=== PATIENT | female | born 1965 | race African-American/Black ===

== ENCOUNTER 2017-09-26 19:36 | Emergency (ER) | payer MEDICAID ==
[~2017-09-26] VITALS: Ht 162.6 cm; Wt 108.4 kg
[~2017-09-26 19:36] MED LIST: ASPIR 8181 MG ORAL; BENAZEPRIL HCL10 MG ORAL; BENAZEPRIL HCL20 MG ORAL; CALCIUM600 M1 PO; CIPRO500 MG/51 PO; CVS CALCIUM 601 EAC3 PO; FERROUS SULFAT325 MG ORAL; FLUOXETINE HCL20 M2 ORAL; FLUOXETINE HCL20 MG ORAL; FLUTICASONE PRO16 G1 NASAL; FUROSEMIDE40 MG ORAL; HYDROCHLOROTHIA50 MG ORAL; IBUPROFEN600 MG ORAL; IBUPROFEN800 MG ORAL; IRON325 M2 PO; KEFLEX500 MG ORAL; LEVAQUIN250 M1 ORAL; LEVAQUIN500 MG ORAL; LORATADINE10 M2 PO; MELOXICAM15 MG PO; METRONIDAZOLE500 MG ORAL; NORCO 10-325 T1 EACH ORAL; NORCO 5-325 TA1 EACH ORAL; NORCO 7.5/3251 EA ORAL; OMEPRAZOLE40 M1 ORAL; PHENERGAN6.25 MG/5 ORAL; PROMETHAZINE-C118 M1 ORAL; RANITIDINE HCL150 M2 PO; ZANTAC150 MG ORAL; ZITHROMAX250 MG ORAL; [UNRECOGNIZED DRUG - OTHER]
[2017-09-26 20:14] VITALS: BP 122/82
[2017-09-26 20:15] VITALS: BP 122/82
--- NOTE | 2017-09-26 20:50 | Emergency Room Report ---
History of Present Illness General Chief Complaint: Pain Source: Patient Present Illness HPI 51-year-old female history of hypertension and arthritis, presenting with 2 days of runny nose, myalgias, dry cough. States that her son has been sick after getting something from school. Denies any chest pain shortness of breath no nausea no vomiting she has otherwise been eating and drinking well no other complaints Allergies: Coded Allergies: No Known Allergies (Unverified , 10/30/13) Patient History Past Medical History: see triage record Past Surgical History: none Pertinent Family History: none Reviewed Nursing Documentation: PMH: Agreed, PSxH: Agreed Nursing Documentation-PMH Hx Cardiac Problems: No - GLAUCOMA BOTH EYES,BREAST REDUCTION Hx Hypertension: Yes Hx Cancer: No Hx Gastrointestinal Problems: Yes - Anemia, CHOLECYSTECTOMY Hx Neurological Problems: No Review of Systems All Other Systems: negative except mentioned in HPI Physical Exam Vital Signs Date Time Temp Pulse Resp B/P (MAP) Pulse Ox O2 Delivery O2 Flow Rate FiO2 09/26/17 19:42 98.2 72 18 111/74 99 Room Air Sp02 EP Interpretation: reviewed, normal General Appearance: normal inspection, well appearing, no apparent distress, alert, GCS 15, non-toxic Head: normocephalic, atraumatic Eyes: bilateral eye normal inspection, bilateral eye PERRL, bilateral eye EOMI ENT: normal ENT inspection, normal pharynx, normal voice, moist mucus membranes Neck: normal inspection, full range of motion, supple Respiratory: normal inspection, lungs clear, normal breath sounds, no respiratory distress, no retraction, no wheezing, speaking full sentences, chest symmetrical Cardiovascular #1: normal inspection, regular rate, rhythm, no edema, normal capillary refill Cardiovascular #2: 2+ radial (R), 2+ radial (L) Gastrointestinal: normal inspection, non tender, soft, non-distended, no guarding Musculoskeletal: normal inspection, back normal, normal range of motion, non- tender Neurologic: normal inspection, alert, oriented x3, responsive, motor strength/ tone normal, sensory intact, normal gait, speech normal Psychiatric: normal inspection, judgement/insight normal, memory normal Skin: normal inspection, normal color, no rash, warm/dry, well hydrated, normal turgor Medical Decision Making Diagnostic Impression: Primary Impression: Viral URI ER Course 51-year-old female with 2 days runny nose cough myalgias DDX: Viral URI Lung sounds clear she is not hypoxic or having any shortness of breath, no concern with pneumonia in this patient Plan: None in the emergency room ER course: Patient has remained stable during ED stay. Disposition: Patient is to be discharged to home. Patient is instructed to follow up with their primary care doctor within 5 days. Strict return precautions discussed with patient such as fever, chills, shortness of breath chest pain, nausea, vomiting, which may indicate severe illness. Patient verbalizes understanding and agrees with plan. Please note that this Emergency Department Report was dictated using MVP Vaultmarine fuel dock attendant technology software, occasionally this can lead to erroneous entry secondary to interpretation by the dictation equipment Last Vital Signs Date Time Temp Pulse Resp B/P (MAP) Pulse Ox O2 Delivery O2 Flow Rate FiO2 09/26/17 20:15 98.2 77 18 122/82 100 Room Air Disposition: HOME, SELF-CARE Condition: Stable Referrals: NON PHYSICIAN (PCP) Patient Instructions: Viral Respiratory Infection, [id number] Additional Instructions: PLEASE FOLLOW UP WITH YOUR DOCTOR IN 1 WEEK Debra Lima M.D. Sep 26, 2017 20:50
== END 2017-09-26 20:16 | disposition home or self-care (01) ==
LOC: EMR 20:14
DX: J06.9 Acute upper respiratory infection, unspecified (principal); I10 Essential (primary) hypertension; Z90.49 Acquired absence of other specified parts of digestive tract; M19.90 Unspecified osteoarthritis, unspecified site
CPT/HCPCS: 99283

== ENCOUNTER 2017-11-10 20:13 | Emergency (ER) | payer MEDICAID ==
[~2017-11-10] VITALS: Ht 162.6 cm; Wt 120.2 kg
[2017-11-10] MEDS ORDERED: ROBAXIN-750750 MG PO (21:02)
[2017-11-10] MEDS ORDERED: IBUPROFEN600 MG ORAL (21:02)
[2017-11-10 21:05] VITALS: BP 104/67
--- NOTE | 2017-11-12 08:45 | Emergency Room Report ---
History of Present Illness General Chief Complaint: Pain Source: Patient Present Illness HPI Patient has with complaints of left shoulder and left knee pain Reports that she has been diagnosed with meniscal tear on the left knee Patient is supposed to be getting set up for surgery However she feels that her left shoulder has increased in pain in triage reported bilateral shoulder pain However on further discussion reports that her left side as the main problem Denies any fall or trauma patient also previously had felt a pulling sensation in the left upper thigh which has since improved Denies any other fall acutely Denies any midline back pain denies any neuropathy Allergies: Coded Allergies: No Known Allergies (Unverified , 10/30/13) Patient History Past Medical History: see triage record Pertinent Family History: none Last Menstrual Period: NA Now: No Reviewed Nursing Documentation: PMH: Agreed, PSxH: Agreed Nursing Documentation-PMH Hx Cardiac Problems: No - GLAUCOMA BOTH EYES,BREAST REDUCTION Hx Hypertension: Yes Hx Cancer: No Hx Gastrointestinal Problems: Yes - Anemia, CHOLECYSTECTOMY Hx Neurological Problems: No Review of Systems All Other Systems: negative except mentioned in HPI Physical Exam Vital Signs Date Time Temp Pulse Resp B/P (MAP) Pulse Ox O2 Delivery O2 Flow Rate FiO2 11/10/17 20:15 98.1 84 17 104/67 99 Room Air Sp02 EP Interpretation: reviewed, normal General Appearance: well appearing, no apparent distress Head: normocephalic, atraumatic Eyes: bilateral eye PERRL, bilateral eye EOMI ENT: hearing grossly normal, normal pharynx Neck: full range of motion, supple Respiratory: lungs clear, normal breath sounds Cardiovascular #1: regular rate, rhythm Gastrointestinal: non tender, soft Musculoskeletal: other - Patient has discomfort on palpation of the anterior left shoulder, no swelling in the joint and the shoulder or knee clinically, patient in place with a walker Neurologic: alert, oriented x3, responsive, music manager III-XII nml as tested Skin: normal color, no rash Lymphatic: no adenopathy Medical Decision Making Diagnostic Impression: Primary Impression: muscle sprain ER Course On further discussion patient also reports that she has had and been told about rotator cuff problems in the left shoulder This could be exacerbation of that pain Patient does not make criteria for other emergency imaging appears to have muscle skeletal ligamental pathology with the increased pain Is treated symptomatically and requires close followup/ Last Vital Signs Date Time Temp Pulse Resp B/P (MAP) Pulse Ox O2 Delivery O2 Flow Rate FiO2 11/10/17 21:05 80 18 142/92 97 11/10/17 21:05 98.1 Room Air Status: improved Disposition: HOME, SELF-CARE Condition: Stable Scripts Methocarbamol* (ROBAXIN-750*) 750 Mg Tablet 750 MG PO TID, #21 TAB 0 Refills Prov: JULIETA ZHANG D.O. 11/10/17 Ibuprofen* (MOTRIN*) 600 Mg Tablet 600 MG ORAL Q8H Y for For Pain, #20 TAB 0 Refills Prov: JULIETA ZHANG D.O. 11/10/17 Referrals: [facility] (PCP) Patient Instructions: Muscle Pain, Adult, Muscle Strain Additional Instructions: Patient is provided with the discharge instructions notified to follow up with primary doctor in the next 2-3 days otherwise return to the er with any worsening symptoms. Please note that this report is being documented using Elliptic technology. This can lead to erroneous entry secondary to incorrect interpretation by the dictating instrument. JULIETA ZHANG D.O. Nov 12, 2017 08:45
== END 2017-11-10 21:05 | disposition home or self-care (01) ==
LOC: EMR 21:00
DX: S46.912A Strain of unspecified muscle, fascia and tendon at shoulder and upper arm level, left arm, initial encounter (principal); X58.XXXA Exposure to other specified factors, initial encounter; Y93.9 Activity, unspecified; Y99.9 Unspecified external cause status; M25.512 Pain in left shoulder; M25.562 Pain in left knee; I10 Essential (primary) hypertension; Z87.19 Personal history of other diseases of the digestive system; D64.9 Anemia, unspecified; Z90.49 Acquired absence of other specified parts of digestive tract
CPT/HCPCS: 99284

== ENCOUNTER 2018-05-08 16:33 | Emergency (ER) | payer MEDICAID ==
[~2018-05-08] VITALS: Ht 160 cm; Wt 108.0 kg
[~2018-05-08 16:33] MED LIST changes: +ROBAXIN-750750 MG PO
--- NOTE | 2018-05-08 17:27 | Emergency Room Report ---
History of Present Illness General Chief Complaint: Skin Rash/Abscess Source: Patient Present Illness HPI 52-year-old female presents emergency department complaining of 8/10 in severity itchy rash to the bilateral feet that is progressing up the legs and on the left wrist 4 days. Denies fevers or chills. Denies lesions/rashes elsewhere on the body. Pt reports use of new cream: calamine lotion with no relief. Denies swelling of the lips, tongue, throat or airway. Denies wheezing , or shortness of breath. Denies recent travel, recent illness or ill contacts. Denies blisters, oral lesions, or sloughing of the skin. Allergies: Coded Allergies: No Known Allergies (Unverified , 10/30/13) Patient History Last Menstrual Period: na Now: No Nursing Documentation-[facility] Past Medical History: No History, Except For Hx Cardiac Problems: No - GLAUCOMA BOTH EYES,BREAST REDUCTION Hx Hypertension: Yes Hx Cancer: No Hx Gastrointestinal Problems: Yes - Anemia, CHOLECYSTECTOMY Hx Neurological Problems: No Review of Systems All Other Systems: negative except mentioned in HPI Physical Exam Vital Signs Date Time Temp Pulse Resp B/P (MAP) Pulse Ox O2 Delivery O2 Flow Rate FiO2 05/08/18 16:35 98.1 84 18 122/72 98 Room Air 98.1 Sp02 EP Interpretation: reviewed, normal General Appearance: no apparent distress, alert, GCS 15, non-toxic Head: normocephalic, atraumatic ENT: hearing grossly normal, no angioedema, normal voice Neck: full range of motion Respiratory: lungs clear, normal breath sounds, no respiratory distress, no wheezing, speaking full sentences Cardiovascular #1: regular rate, rhythm Musculoskeletal: back normal, gait/station normal, normal range of motion, non- tender Neurologic: alert, oriented x3, responsive, motor strength/tone normal, sensory intact, speech normal, grossly normal Psychiatric: judgement/insight normal Skin: normal color, no rash, warm/dry, well hydrated, other - multiple discrete papular lesions migrating up the bilateral feet and ankles, and few on the bilateral wrists. no erythema, no crusting, no increased temperature to palpation, no vessicles or blisters. Lymphatic: no adenopathy Medical Decision Making PA Attestation Dr. barrera is my supervising Physician whom patient management has been discussed with. Diagnostic Impression: Primary Impression: Insect bites Qualified Codes: W57.XXXA - Bitten or stung by nonvenomous insect and other nonvenomous arthropods, initial encounter ER Course 52-year-old female presents emergency department complaining of 8/10 in severity itchy rash to the bilateral feet that is progressing up the legs and on the left wrist 4 days. Denies fevers or chills. Denies lesions/rashes elsewhere on the body. Pt reports use of new cream: calamine lotion with no relief. Denies swelling of the lips, tongue, throat or airway. Denies wheezing , or shortness of breath. Denies recent travel, recent illness or ill contacts. Denies blisters, oral lesions, or sloughing of the skin. Ddx considered but are not limited to cellulitis, scabies, shingles, varicella, dermatitis, urticaria, eczema, tinea, viral exanthem, SJS Vital signs: are WNL, pt. is afebrile H&PE are most consistent with insect bites.- No evidence of anaphylaxis or impending airway compromise. ORDERS: none required at this time, the diagnosis is clinical ED INTERVENTIONS: None required at this time. DISCHARGE: At this time pt. is stable for d/c to home. Will provide printed patient care instructions, and any necessary prescriptions. Care plan and follow up instructions have been discussed with the patient prior to discharge. Last Vital Signs Date Time Temp Pulse Resp B/P (MAP) Pulse Ox O2 Delivery O2 Flow Rate FiO2 05/08/18 16:35 98.1 84 18 122/72 98 Room Air 98.1 Disposition: HOME, SELF-CARE Condition: Stable Scripts Permethrin* (ELIMITE*) 60 Gm Cream..g. 1 APPLIC TOPIC ONCE, #60 GM 0 Refills Apply cream from head to toe; leave on for 8-14 hours before washing off with water; may reapply in 1 week if live mites appear. Prov: Bri Stock 05/08/18 Hydrocortisone (Hydrocortisone Cream 2.5%) Y Cream.appl 1 APPLIC TP BID, #28.3 GM Prov: Bri Stock 05/08/18 Hydroxyzine HCl (Hydroxyzine HCl) 25 Mg Tablet 25 MG ORAL FOUR TIMES A DAY, #20 TAB Prov: Bri Stock 05/08/18 Patient Instructions: Insect Bite Additional Instructions: Take medications as directed. Follow up with a Primary Care Provider in 3-5 days, even if your symptoms have resolved. --Please review list of primary care clinics, if you do not already have a primary care provider Return sooner to ED if new symptoms occur, or current symptoms become worse. Do not drink alcohol, drive, or operate heavy machinery while taking Hydroxyzine as this may cause drowsiness. - Please note that this Emergency Department Report was dictated using Planandoogranite cutter technology software, occasionally this can lead to erroneous entry secondary to interpretation by the dictation equipment. Bri Stock May 08, 2018 17:27
[2018-05-08] MEDS ORDERED: HYDROCORTISONE30 G2 TP (17:28)
[2018-05-08] MEDS ORDERED: PERMETHRIN60 GM TOPIC (17:28)
[2018-05-08] MEDS ORDERED: ATARAX25 MG ORAL (17:28)
[2018-05-08 18:15] VITALS: BP 126/87
== END 2018-05-08 18:15 | disposition home or self-care (01) ==
LOC: EMR 17:00
DX: S90.862A Insect bite (nonvenomous), left foot, initial encounter (principal); S90.861A Insect bite (nonvenomous), right foot, initial encounter; S90.562A Insect bite (nonvenomous), left ankle, initial encounter; S90.561A Insect bite (nonvenomous), right ankle, initial encounter; S60.862A Insect bite (nonvenomous) of left wrist, initial encounter; S60.861A Insect bite (nonvenomous) of right wrist, initial encounter; W57.XXXA Bitten or stung by nonvenomous insect and other nonvenomous arthropods, initial encounter; Y92.9 Unspecified place or not applicable; R21 Rash and other nonspecific skin eruption; I10 Essential (primary) hypertension; H40.9 Unspecified glaucoma
CPT/HCPCS: 99284

== ENCOUNTER 2018-08-14 15:36 | Emergency (ER) | payer MEDICAID, OTHER ==
[~2018-08-14] VITALS: Ht 160 cm; Wt 106.6 kg
[~2018-08-14 15:36] MED LIST changes: +ATARAX25 MG ORAL; +HYDROCORTISONE30 G2 TP; +PERMETHRIN60 GM TOPIC
[2018-08-14 16:50] VITALS: BP 113/76
[2018-08-14] MEDS ORDERED: CEPHALEXIN500 MG ORAL (17:45)
[2018-08-14] MEDS ORDERED: BACTRIM DS TAB1 EAC1 ORAL (17:45)
[2018-08-14] MEDS ORDERED: TYLENOL EXTRA500 MG ORAL (17:45)
--- NOTE | 2018-08-14 17:45 | Emergency Room Report ---
History of Present Illness General Chief Complaint: Female Urogenital Problems Source: Patient Present Illness HPI 52-year-old female patient presents ER complaining of bump on her left side of her vaginal fold for the past 2 days. Reports appeared yesterday and has grown in size. Reports pain with walking. Denies dysuria, hematuria. Denies vaginal discharge. Denies recent sexual activity. Reports normal bowel movements. Denies fever, chest pain, shortness of breath, abdominal pain, vomiting, diarrhea. Allergies: Coded Allergies: No Known Allergies (Unverified , 10/30/13) Patient History Past Medical History: see triage record Last Menstrual Period: 07/14/18 Now: No Reviewed Nursing Documentation: PMH: Agreed; PSxH: Agreed Nursing Documentation-PMH Hx Cardiac Problems: No - GLAUCOMA BOTH EYES,BREAST REDUCTION Hx Hypertension: Yes Hx Cancer: No Hx Gastrointestinal Problems: Yes - Anemia, CHOLECYSTECTOMY Hx Neurological Problems: No Review of Systems All Other Systems: negative except mentioned in HPI Physical Exam Vital Signs Date Time Temp Pulse Resp B/P (MAP) Pulse Ox O2 Delivery O2 Flow Rate FiO2 08/14/18 15:50 98.4 76 20 94/63 94 Room Air 98.4 Sp02 EP Interpretation: reviewed, normal General Appearance: well appearing, no apparent distress, alert, GCS 15, non- toxic Head: normocephalic, atraumatic Eyes: bilateral eye normal inspection, bilateral eye PERRL Neck: full range of motion Respiratory: lungs clear, normal breath sounds, no rhonchi, no respiratory distress, no accessory muscle use, no wheezing, speaking full sentences Cardiovascular #1: regular rate, rhythm, no edema Gastrointestinal: non tender, soft, no mass, non-distended, no guarding, no rebound Genitourinary: no CVA tenderness, other - left external labial fold: 3 cm palpable mass, indurated, draining pus, no surrounding erythema or edema, tenderness to palpation Musculoskeletal: back normal, digits/nails normal, gait/station normal, normal range of motion, non-tender Neurologic: alert, oriented x3, responsive, motor strength/tone normal, sensory intact Psychiatric: mood/affect normal Skin: no rash Medical Decision Making PA Attestation Dr. Godfrey is my supervising Physician whom patient management has been discussed with. Diagnostic Impression: Primary Impression: Abscess ER Course Pt. presents to the ED c/o bump on vaginal fold. Ddx considered but are not limited to rash, cellulitis, abscess, sebaceous cyst , carbuncle, folliculitis. Does not require imaging at this time. Vital signs: are WNL, pt. is afebrile ED INTERVENTIONS: Ibuprofen for pain physical exam shows abscess formed on left side of external vaginal fold, indurated, pus draining, a little express further pus in the ER without incision , patient does not require incision and drainage at this time. physical exam not consistent with Bartholin's cyst. Will provide patient with antibiotic treatments to be discharged home. Advised patient on sitz baths and keep the area clean. Advised patient to return to ER in 2 days if symptoms worsen. Follow with primary care provider for further treatment and referral. Patient seen and evaluated by Dr. Godfrey, agrees with treatment and plan. DISCHARGE: -Rx provided for Keflex -Rx provided for Bactrim -Rx provided for Tylenol At this time pt. is stable for d/c to home. Patient is resting comfortably, in no acute distress, nontoxic appearing. Will provide printed patient care instructions and any necessary prescriptions. Care plan and follow up instructions have been discussed with the patient prior to discharge. Patient instructed to follow-up with primary care provider in 2 - 3 days for wound recheck. Patient questions asked and answered. Patient reports understanding and agreement to treatment plan. ER precautions given. Patient instructed to return to ER immediately for any new or worsening of symptoms including but not limited to fever, worsening of pain symptoms, worsening of erythema, red streaking. - Please note that this Emergency Department Report was dictated using MaxPoint Interactivereplenishment analyst technology software, occasionally this can lead to erroneous entry secondary to interpretation by the dictation equipment. Last Vital Signs Date Time Temp Pulse Resp B/P (MAP) Pulse Ox O2 Delivery O2 Flow Rate FiO2 08/14/18 15:50 98.4 76 20 94/63 94 Room Air 98.4 Status: improved Disposition: HOME, SELF-CARE Condition: Stable Scripts Trimethoprim/Sulfamethoxazole 160/800* (BACTRIM DS TABLET*) 1 Each Tablet 1 TAB ORAL TWICE A DAY for 7 Days, #14 TAB Prov: Fly Vega P.A. 08/14/18 Acetaminophen* (TYLENOL EXTRA STRENGTH*) 500 Mg Tablet 500 MG ORAL Q8H PRN for Prn Headache/Temp > 101, #30 TAB 0 Refills Prov: Fly Vega 08/14/18 Cephalexin* (KEFLEX*) 500 Mg Capsule 500 MG ORAL EVERY 12 HOURS, #14 CAP 0 Refills Prov: Fly Vega 08/14/18 Patient Instructions: Abscess, [id number] Additional Instructions: Followup with primary care provider in 3 -5 days. Advised patient on sitz baths and cleaning abscess. Take medications as directed. Patient questions asked and answered. ER precautions given, patient instructed to return to ER immediately for any new or worsening of symptoms. Return to ER in 2 days if symptoms worsen. Fly Vega Aug 14, 2018 17:45
[2018-08-14 18:13] VITALS: BP 125/78
== END 2018-08-14 17:55 | disposition home or self-care (01) ==
LOC: EMR 17:45
DX: L02.818 Cutaneous abscess of other sites (principal); I10 Essential (primary) hypertension; H40.9 Unspecified glaucoma; Z90.49 Acquired absence of other specified parts of digestive tract
CPT/HCPCS: 99283

== ENCOUNTER 2018-10-16 19:40 | Emergency (ER) | payer MEDICAID, OTHER ==
[~2018-10-16] VITALS: Ht 162.6 cm; Wt 108.9 kg
[~2018-10-16 19:40] MED LIST changes: +BACTRIM DS TAB1 EAC1 ORAL; +CEPHALEXIN500 MG ORAL; +TYLENOL EXTRA500 MG ORAL
[2018-10-16 19:52] VITALS: BP 104/69
--- NOTE | 2018-10-16 20:18 | Emergency Room Report ---
History of Present Illness General Chief Complaint: Pain Present Illness HPI 52-year-old female presents to the emergency department complaining of left- sided facial congestion, rhinorrhea, tenderness and frequent popping from the left ear times one day. Patient reports she had some congestion and rhinorrhea bilaterally yesterday which resolved by the in the day however upon awakening this morning she had all of her symptoms very concentrated on the left side. Patient denies headache, fevers, chills, neck pain or stiffness. Patient reports she has a little bit of pain just anterior to the left ear on the outside. Patient denies discharge from the ear, purulent discharge from the nose. She denies cough, sore throat reports some generalized body aches. Denies CP, SOB, or dyspnea. Denies dental pain or recent dental procedures. Allergies: Coded Allergies: No Known Allergies (Unverified , 10/30/13) Patient History Past Medical History: see triage record Past Surgical History: none Pertinent Family History: none Last Menstrual Period: 12/2017 Now: No : 3 Para: 3 Reviewed Nursing Documentation: PMH: Agreed; PSxH: Agreed Nursing Documentation-PMH Hx Cardiac Problems: No - GLAUCOMA BOTH EYES,BREAST REDUCTION Hx Hypertension: Yes Hx Cancer: No Hx Gastrointestinal Problems: Yes - Anemia, CHOLECYSTECTOMY Hx Neurological Problems: No Review of Systems All Other Systems: negative except mentioned in HPI Physical Exam Vital Signs Date Time Temp Pulse Resp B/P (MAP) Pulse Ox O2 Delivery O2 Flow Rate FiO2 10/16/18 19:48 98.2 75 16 104/69 95 Room Air Sp02 EP Interpretation: reviewed, normal General Appearance: no apparent distress, alert, GCS 15, non-toxic Head: normocephalic, atraumatic Eyes: bilateral eye normal inspection, bilateral eye PERRL ENT: hearing grossly normal, normal pharynx, normal voice, TMs + canals normal , uvula midline, moist mucus membranes, nasal congestion - left nare not patent. , other - TTP to the left maxillary sinus area and pre-auricular area, nasal congestion of the left Neck: full range of motion, no meningismus Respiratory: chest non-tender, lungs clear, normal breath sounds, no wheezing, speaking full sentences Cardiovascular #1: regular rate, rhythm Musculoskeletal: back normal, gait/station normal, normal range of motion, non- tender Neurologic: alert, oriented x3, responsive, motor strength/tone normal, sensory intact, speech normal, grossly normal Psychiatric: judgement/insight normal Skin: normal color, no rash, warm/dry, well hydrated Lymphatic: no adenopathy Medical Decision Making PA Attestation Dr. barrera is my supervising Physician whom patient management has been discussed with. Diagnostic Impression: Primary Impression: Sinusitis, acute Qualified Codes: J01.00 - Acute maxillary sinusitis, unspecified Additional Impression: Upper respiratory infection, viral ER Course 52-year-old female presents to the emergency department complaining of left- sided facial congestion, rhinorrhea, tenderness and frequent popping from the left ear times one day. Patient reports she had some congestion and rhinorrhea bilaterally yesterday which resolved by the in the day however upon awakening this morning she had all of her symptoms very concentrated on the left side. Patient denies headache, fevers, chills, neck pain or stiffness. Patient reports she has a little bit of pain just anterior to the left ear on the outside. Patient denies discharge from the ear, purulent discharge from the nose. She denies cough, sore throat reports some generalized body aches. Ddx considered but are not limited to URI, pneumonia, PE, strep pharyngitis, meningitis, sinusitis, allergic rhinitis, OM/OE, parotitis. abscess just to name a few. Vital signs: Pt. is afebrile, the remaining VS are WNL H&PE are most consistent with URI- no meningeal signs, oropharynx is not involved, no evidence of bacterial infection at this time. ORDERS: none required at this time, the diagnosis is clinical ED INTERVENTIONS: None required at this time. --PT. EDUCATION: Discussed antibiotic resistance with inappropriate prescribing of antibiotics for viral illnesses. Discussed signs and symptoms to indicate viral illness versus bacterial illness. DISCHARGE: At this time pt. is stable for d/c to home. Will provide printed patient care instructions, and any necessary prescriptions. Care plan and follow up instructions have been discussed with the patient prior to discharge. Last Vital Signs Date Time Temp Pulse Resp B/P (MAP) Pulse Ox O2 Delivery O2 Flow Rate FiO2 10/16/18 19:52 98.2 81 16 104/69 95 Room Air Disposition: HOME, SELF-CARE Condition: Stable Scripts Ibuprofen* (MOTRIN*) 600 Mg Tablet 600 MG ORAL THREE TIMES A DAY, #20 TAB 0 Refills Prov: Bri Stock 10/16/18 Sodium Chloride (Saline Nasal [place]) 30 Ml [place] 1 SPRAY NASAL THREE TIMES A DAY, #30 ML Prov: Bri Stock 10/16/18 Pseudoephedrine Hcl* (NEXAFED*) 30 Mg Tablet 30 MG ORAL Q6H PRN for congestion, #20 TAB Prov: Bri Stock 10/16/18 Patient Instructions: Sinusitis, Adult, [id number] Additional Instructions: Take medications as directed. Follow up with a Primary Care Provider in 3-5 days, even if your symptoms have resolved. --Please review list of primary care clinics, if you do not already have a primary care provider Return sooner to ED if new symptoms occur, or current symptoms become worse. - Please note that this Emergency Department Report was dictated using [email or web address] account manager technology software, occasionally this can lead to erroneous entry secondary to interpretation by the dictation equipment. Bri Stock Oct 16, 2018 20:18
[2018-10-16] MEDS ORDERED: SALINE NASAL SP45 ML NASAL (20:20)
[2018-10-16] MEDS ORDERED: NEXAFED30 MG ORAL (20:20)
[2018-10-16] MEDS ORDERED: IBUPROFEN600 MG ORAL (20:22)
[2018-10-16 20:27] VITALS: BP 109/72
== END 2018-10-16 20:30 | disposition home or self-care (01) ==
LOC: EMR 20:10
DX: J01.90 Acute sinusitis, unspecified (principal); J06.9 Acute upper respiratory infection, unspecified; I10 Essential (primary) hypertension
CPT/HCPCS: 99283

== ENCOUNTER 2018-11-13 21:31 | Emergency (ER) | payer OTHER ==
[~2018-11-13] VITALS: Ht 162.6 cm; Wt 111.1 kg
[~2018-11-13 21:31] MED LIST changes: +NEXAFED30 MG ORAL; +SALINE NASAL SP45 ML NASAL
[2018-11-13 21:45] VITALS: BP 107/68
[2018-11-13] MEDS ORDERED: PREDNISONE20 MG ORAL (22:15)
--- NOTE | 2018-11-13 22:15 | Emergency Room Report ---
History of Present Illness General Chief Complaint: Upper Respiratory Illness Source: Patient Present Illness HPI This is a 52-year-old female with a history of high blood pressure. She presents with chief complaint of loss of voice. Onset yesterday. Getting worse with to the point where she can't talk anymore. No fever or chills. No nausea no vomiting. No pain. Denies any other complaint. Allergies: Coded Allergies: No Known Allergies (Unverified , 10/30/13) Patient History Past Medical History: see triage record, old chart reviewed, HTN Past Surgical History: none Pertinent Family History: none Social History: Denies: smoking Last Menstrual Period: february 2018 Now: No Immunizations: other Reviewed Nursing Documentation: PMH: Agreed; PSxH: Agreed Nursing Documentation-PMH Hx Cardiac Problems: No - GLAUCOMA BOTH EYES,BREAST REDUCTION Hx Hypertension: Yes Hx Cancer: No Hx Gastrointestinal Problems: Yes - Anemia, CHOLECYSTECTOMY History Of Psychiatric Problem: Yes - depression Hx Neurological Problems: No Review of Systems Eye: Denies: eye pain, blurred vision ENT: Denies: ear pain, nose congestion, throat swelling Respiratory: Denies: cough, shortness of breath Cardiovascular: Denies: chest pain, palpitations Gastrointestinal: Denies: abdominal pain, diarrhea, nausea, vomiting Musculoskeletal: Denies: back pain, joint pain Skin: Denies: rash Neurological: Denies: headache, numbness Endocrine: Denies: increased thirst, increased urine Hematologic/Lymphatic: Denies: easy bruising All Other Systems: negative except mentioned in HPI Physical Exam Vital Signs Date Time Temp Pulse Resp B/P (MAP) Pulse Ox O2 Delivery O2 Flow Rate FiO2 11/13/18 21:43 98.6 79 16 107/68 95 Room Air vitals normal Sp02 EP Interpretation: reviewed, normal General Appearance: well appearing, no apparent distress, alert Head: normocephalic, atraumatic Eyes: bilateral eye PERRL, bilateral eye EOMI ENT: hearing grossly normal, normal pharynx Neck: full range of motion, supple, no meningismus Respiratory: chest non-tender, lungs clear, normal breath sounds Cardiovascular #1: regular rate, rhythm, no murmur Gastrointestinal: normal bowel sounds, non tender, no mass, no organomegaly, no bruit, non-distended Musculoskeletal: back normal, gait/station normal, normal range of motion Psychiatric: mood/affect normal Skin: warm/dry Medical Decision Making Diagnostic Impression: Primary Impression: Laryngitis, acute ER Course Patient presents with a laryngitis. No evidence of strep throat. No trismus. We'll discharge home. Last Vital Signs Date Time Temp Pulse Resp B/P (MAP) Pulse Ox O2 Delivery O2 Flow Rate FiO2 11/13/18 21:43 98.6 79 16 107/68 95 Room Air Status: unchanged Disposition: HOME, SELF-CARE Condition: Stable Scripts Prednisone* (PREDNISONE*) 20 Mg Tablet 40 MG ORAL DAILY, #10 TAB Prov: Spenser Hazel MD 11/13/18 Additional Instructions: Increase fluid. Decrease talking. Follow-up with your doctor in 7 days if not better. Return if worse. Spenser Hazel MD Nov 13, 2018 22:15
[2018-11-13 22:19] VITALS: BP 110/68
== END 2018-11-13 22:19 | disposition home or self-care (01) ==
LOC: EMR 22:10
DX: J04.0 Acute laryngitis (principal); I10 Essential (primary) hypertension; Z90.49 Acquired absence of other specified parts of digestive tract; F32.9 Major depressive disorder, single episode, unspecified
CPT/HCPCS: 99282

== ENCOUNTER 2019-02-27 18:13 | Emergency (ER) | payer MEDICARE, OTHER ==
[~2019-02-27] VITALS: Ht 162.6 cm; Wt 113.4 kg
[~2019-02-27 18:13] MED LIST changes: +PREDNISONE20 MG ORAL
--- NOTE | 2019-02-27 18:29 | NUR ---
ED Nurse Note: Pt came into the ER w/ complaints of generalized left sided pain x 1 year. Pt is rating the pain a 8/10 on that side. A + O x4. Ambulatory. Skin warm to touch.
[2019-02-27 18:30] VITALS: BP 145/80
--- NOTE | 2019-02-27 18:42 | Emergency Room Report ---
History of Present Illness General Chief Complaint: Pain Source: Patient Present Illness HPI Patient presents with complaints of pain to her left knee and left ankle reports that she has been told that she needs a possible knee replacement Her meniscus on the left side is in poor condition Patient also reports a twisting injury as well last week causing increased discomfort to the knee Patient reports that she usually takes Motrin She had a breast biopsy 3 days ago and was told to not take any aspirin or Motrin Therefore she has been taking Tylenol with very minimal relief Denies any pelvic pain Allergies: Coded Allergies: No Known Allergies (Unverified , 10/30/13) Patient History Past Medical History: see triage record Pertinent Family History: none Reviewed Nursing Documentation: PMH: Agreed; PSxH: Agreed Nursing Documentation-PMH Past Medical History: No History, Except For Hx Cardiac Problems: No - GLAUCOMA BOTH EYES,BREAST REDUCTION Hx Hypertension: Yes Hx Cancer: No Hx Gastrointestinal Problems: Yes - Anemia, CHOLECYSTECTOMY Hx Neurological Problems: No Review of Systems All Other Systems: negative except mentioned in HPI Physical Exam Vital Signs Date Time Temp Pulse Resp B/P (MAP) Pulse Ox O2 Delivery O2 Flow Rate FiO2 02/27/19 18:22 98.2 78 20 144/83 98 Room Air Sp02 EP Interpretation: reviewed, normal General Appearance: well appearing, no apparent distress Head: normocephalic, atraumatic Eyes: bilateral eye PERRL, bilateral eye EOMI ENT: hearing grossly normal, normal pharynx Neck: supple Respiratory: lungs clear, no retraction, no accessory muscle use Cardiovascular #1: regular rate, rhythm Gastrointestinal: non tender, soft Musculoskeletal: other - Discomfort on palpation of the left knee no obvious clinical effusion, left ankle also some discomfort on the proximal palpation no obvious edema. Patient ambulating with a cane Neurologic: alert, oriented x3, responsive Skin: no rash Lymphatic: no adenopathy Medical Decision Making Diagnostic Impression: Primary Impression: left knee sprain ER Course Given the patient's clinical history and exam I did not feel acute emergency imaging was required Patient has been ambulate in for that over the past 7 days With similar discomfort has previous patient has also been told to stop Motrin since her breast biopsy Patient was provided medication here however I do not feel the patient meets criteria for continued opiate medication as outpatient and requires improved outpatient care Last Vital Signs Date Time Temp Pulse Resp B/P (MAP) Pulse Ox O2 Delivery O2 Flow Rate FiO2 02/27/19 18:30 98.1 65 18 145/80 95 Room Air Status: improved Disposition: HOME, SELF-CARE Condition: Improved Patient Instructions: Ankle Sprain, [id number], Knee Sprain, [id number] Additional Instructions: Patient is provided with the discharge instructions notified to follow up with primary doctor in the next 2-3 days otherwise return to the er with any worsening symptoms. Please note that this report is being documented using [employer] technology. This can lead to erroneous entry secondary to incorrect interpretation by the dictating instrument. Azeem Jama DO Feb 27, 2019 18:42
[2019-02-27 18:45] VITALS: BP 140/82
[2019-02-27] MEDS ORDERED: Tylenol #3 tab (300mg/30mg) ORAL ONE (18:45)
--- NOTE | 2019-02-27 18:45 | NUR ---
ER DISCHARGE NOTE: Patient is cleared to be discharged per ERMD, pt is aox4, on room air, with stable vital signs. pt was given dc and prescription instructions, pt was able to verbalize understanding, pt id band removed without complications. pt is able to ambulate with steady gait. pt took all belongings.
== END 2019-02-27 18:46 | disposition home or self-care (01) ==
LOC: EMR 18:42
DX: S83.92XA Sprain of unspecified site of left knee, initial encounter (principal); X50.1XXA Overexertion from prolonged static or awkward postures, initial encounter; Y92.9 Unspecified place or not applicable; I10 Essential (primary) hypertension; Z90.49 Acquired absence of other specified parts of digestive tract
CPT/HCPCS: 99281

== ENCOUNTER 2019-03-06 23:14 | Emergency (ER) | payer MEDICARE, OTHER ==
[~2019-03-06] VITALS: Ht 162.6 cm; Wt 112.9 kg
[2019-03-06 23:32] VITALS: BP 108/67
--- NOTE | 2019-03-07 00:11 | Emergency Room Report ---
History of Present Illness General Chief Complaint: Pain Source: Patient Present Illness HPI Patient is a 53-year-old female presented after increased left-sided facial pain. Patient reports of increased pain for the past 3 days. She reports having gradual onset of symptoms. She denies any fever. She reports having prior history of hypertension. She denies any weakness to her extremities. She states that she had been having increased difficulty with movement of her face. Pain was throbbing in nature. She denies any visual changes. She had prior history of glaucoma. Allergies: Coded Allergies: No Known Allergies (Unverified , 10/30/13) Patient History Past Medical History: see triage record Last Menstrual Period: BRITTNI Now: No Reviewed Nursing Documentation: PMH: Agreed; PSxH: Agreed Nursing Documentation-PMH Past Medical History: No History, Except For Hx Cardiac Problems: No - GLAUCOMA BOTH EYES,BREAST REDUCTION Hx Hypertension: Yes Hx Cancer: No Hx Gastrointestinal Problems: Yes - Anemia, CHOLECYSTECTOMY Hx Neurological Problems: No Review of Systems All Other Systems: negative except mentioned in HPI Physical Exam Vital Signs Date Time Temp Pulse Resp B/P (MAP) Pulse Ox O2 Delivery O2 Flow Rate FiO2 03/06/19 23:21 98.8 74 16 108/67 99 Room Air Sp02 EP Interpretation: reviewed, normal General Appearance: normal inspection, well appearing, no apparent distress, alert, GCS 15 Head: atraumatic ENT: normal ENT inspection, hearing grossly normal, normal voice Neck: normal inspection, full range of motion, supple, no bony tend Respiratory: normal inspection, lungs clear, normal breath sounds, no respiratory distress, no retraction, no wheezing Cardiovascular #1: regular rate, rhythm, no edema Gastrointestinal: normal inspection, normal bowel sounds, non tender, soft, no guarding, no hernia Genitourinary: no CVA tenderness Musculoskeletal: normal inspection, back normal, normal range of motion Neurologic: normal inspection, alert, oriented x3, responsive, crm specialist III-XII nml as tested, speech normal Psychiatric: normal inspection, judgement/insight normal, mood/affect normal Skin: normal inspection, normal color, no rash Medical Decision Making Diagnostic Impression: Primary Impression: Acute parotitis ER Course Patient presented for left-sided facial pain. Differential diagnosis include was not limited to CVA, abscess, parotitis, among others. Because of complexity of patient's case laboratory testing and imaging studies were ordered. Left ray studies were unremarkable. Patient was noted to have some left sided facial swelling. She was given IV antibiotics. She is given prescription for further antibiotics. Patient was noted to have some tenderness to the area in the soft tissue in front of the parotid. The patient is advised to follow up with primary care doctor in 1-2 days. Patient is advised to return if any worsening condition or if any changes in status that are concerning. This report is dictated with [employer] mental health tech software which may occasionally lead to discrepancies related to use of this software. Labs Test 03/07/19 00:27 White Blood Count 9.4 K/UL (4.8-10.8) Red Blood Count 5.53 M/UL (4.20-5.40) Hemoglobin 12.5 G/DL (12.0-16.0) Hematocrit 40.4 % (37.0-47.0) Mean Corpuscular Volume 73 FL (80-99) Mean Corpuscular Hemoglobin 22.6 PG (27.0-31.0) Mean Corpuscular Hemoglobin Concent 30.9 G/DL (32.0-36.0) Red Cell Distribution Width 14.9 % (11.6-14.8) Platelet Count 363 K/UL (150-450) Mean Platelet Volume 6.4 FL (6.5-10.1) Neutrophils (%) (Auto) 63.8 % (45.0-75.0) Lymphocytes (%) (Auto) 26.5 % (20.0-45.0) Monocytes (%) (Auto) 6.8 % (1.0-10.0) Eosinophils (%) (Auto) 2.1 % (0.0-3.0) Basophils (%) (Auto) 0.8 % (0.0-2.0) Erythrocyte Sedimentation Rate 8 MM/HR (0-30) Sodium Level 140 MMOL/L (136-145) Potassium Level 3.5 MMOL/L (3.5-5.1) Chloride Level 102 MMOL/L (98-107) Carbon Dioxide Level 31 MMOL/L (21-32) Anion Gap 7 mmol/L (5-15) Blood Urea Nitrogen 13 mg/dL (7-18) Creatinine 1.1 MG/DL (0.55-1.30) Estimat Glomerular Filtration Rate > 60 mL/min (>60) Glucose Level 110 MG/DL (74-106) Calcium Level 9.8 MG/DL (8.5-10.1) Total Bilirubin 0.3 MG/DL (0.2-1.0) Aspartate Amino Transf (AST/SGOT) 16 U/L (15-37) Alanine Aminotransferase (ALT/SGPT) 23 U/L (12-78) Alkaline Phosphatase 83 U/L (46-116) Total Protein 8.3 G/DL (6.4-8.2) Albumin 3.7 G/DL (3.4-5.0) Globulin 4.6 g/dL Albumin/Globulin Ratio 0.8 (1.0-2.7) EKG Diagnostic Results Rate: normal Rhythm: NSR ST Segments: no acute changes Last Vital Signs Date Time Temp Pulse Resp B/P (MAP) Pulse Ox O2 Delivery O2 Flow Rate FiO2 03/06/19 23:32 98.8 74 16 108/67 99 Room Air Status: improved Disposition: HOME, SELF-CARE Condition: Stable Scripts Acetaminophen* (TYLENOL EXTRA STRENGTH*) 500 Mg Tablet 500 MG ORAL Q8H PRN for Prn Headache/Temp > 101, #30 TAB 0 Refills Prov: Justin Andrade MD 03/07/19 Cephalexin* (KEFLEX*) 500 Mg Capsule 500 MG ORAL EVERY 6 HOURS, #28 CAP Prov: Jusitn Andrade MD 03/07/19 Referrals: NON PHYSICIAN (PCP) Justin Andrade MD Mar 07, 2019 00:11
[2019-03-07] MEDS ORDERED: Ketorolac 30mg Inj IV ONE (00:15)
[2019-03-07] MEDS ORDERED: Ampicillin/Sulbactam Sod 3 GM in NS 110 ML IVPB ONE (00:45)
[2019-03-07 00:50] LABS: BASOPHILS % (AUTO) 0.8 % (0.0-2.0); EOSINOPHILS % (AUTO) 2.1 % (0.0-3.0); HEMATOCRIT 40.4 % (37.0-47.0); HEMOGLOBIN 12.5 G/DL (12.0-16.0); LYMPHOCYTES % (AUTO) 26.5 % (20.0-45.0); MEAN CORPUSCULAR VOLUME 73 FL (80-99); MONOCYTES % (AUTO) 6.8 % (1.0-10.0); NEUTROPHILS % (AUTO) 63.8 % (45.0-75.0); PLATELET COUNT 363 K/UL (150-450); RED BLOOD COUNT 5.53 M/UL (4.20-5.40); RED CELL DISTRIBUTION WIDTH 14.9 % (11.6-14.8); WHITE BLOOD COUNT 9.4 K/UL (4.8-10.8)
[2019-03-07 00:59] LABS: ANION GAP 7 mmol/L (5-15); BLOOD UREA NITROGEN 13 mg/dL (7-18); CALCIUM 9.8 MG/DL (8.5-10.1); CARBON DIOXIDE 31 MMOL/L (21-32); CHLORIDE 102 MMOL/L (98-107); CREATININE 1.1 MG/DL (0.55-1.30); POTASSIUM 3.5 MMOL/L (3.5-5.1); SODIUM 140 MMOL/L (136-145)
[2019-03-07 01:03] LABS: ALANINE AMINOTRANSFERASE 23 U/L (12-78); ALBUMIN 3.7 G/DL (3.4-5.0); ALBUMIN/GLOBULIN RATIO 0.8 (1.0-2.7); ALKALINE PHOSPHATASE 83 U/L (46-116); ASPARTATE AMINO TRANSFERASE 16 U/L (15-37); BILIRUBIN,TOTAL 0.3 MG/DL (0.2-1.0)
[2019-03-07] MEDS ORDERED: CEPHALEXIN500 MG ORAL (01:20)
[2019-03-07] MEDS ORDERED: TYLENOL EXTRA500 MG ORAL (01:22)
[2019-03-07 01:24] VITALS: BP 110/73
[2019-03-07 02:00] VITALS: BP 110/73
--- NOTE | 2019-03-07 11:01 | Diagnostic Imaging Report ---
Indications: Left-sided facial pain and headache for 2 days Technique: Spiral acquisitions obtained through the brain. Angled axial and coronal 5 x 5 mm slices were reconstructed. Total dose length product 1386 mGycm. CTDI vol(s) 70 mGy. Dose reduction achieved using automated exposure control Comparison: None. Findings: No acute intracranial hemorrhage or edema, mass effect, nor midline shift. Normal reyes-white differentiation. Normal-sized ventricles and extra axial CSF spaces. Intact calvarium. Visualized orbits and sinuses are unremarkable. The calvarium is intact. The mastoids are clear. Impression: Negative This agrees with the preliminary interpretation provided overnight by [facility]. The CT scanner at [facility] is accredited by the [employer] and the scans are performed using protocols designed to limit radiation exposure to as low as reasonably achievable to attain images of sufficient resolution adequate for diagnostic evaluation.
== END 2019-03-07 01:55 | disposition home or self-care (01) ==
LOC: EMR 23:27
DX: K11.21 Acute sialoadenitis (principal); R51 Headache; I10 Essential (primary) hypertension; H40.9 Unspecified glaucoma; Z90.49 Acquired absence of other specified parts of digestive tract
CPT/HCPCS: 36415; 70450; 80053; 85025; 85651; 96365; 96375; 99284; J0295; J1885

== ENCOUNTER 2019-05-05 23:59 | Emergency (ER) | payer MEDICARE, OTHER ==
[~2019-05-05] VITALS: Ht 162.6 cm; Wt 106.6 kg
[2019-05-06 00:09] VITALS: BP 122/73
--- NOTE | 2019-05-06 00:09 | NUR ---
ED Nurse Note: PT AMBULATED TO ED C/O NASAL CONGESTIONS X 1 DAY
[2019-05-06] MEDS ORDERED: FLONASE ALLERG9.9 ML NS (00:15)
[2019-05-06] MEDS ORDERED: BENADRYL25 MG ORAL (00:15)
--- NOTE | 2019-05-06 00:15 | NUR ---
ER DISCHARGE NOTE: Patient is cleared to be discharged per ERMD, pt is aox4, on room air, with stable vital signs. pt was given dc and prescription instructions, pt was able to verbalize understanding, pt id band removed. pt is able to ambulate with steady gait. pt took all belongings.
--- NOTE | 2019-05-06 00:16 | Emergency Room Report ---
History of Present Illness General Chief Complaint: Upper Respiratory Illness Source: Patient Present Illness HPI Is a 53-year-old female with history of high blood pressure. She presents with nasal congestion and loss of smell and taste. Onset today. She was at a concert yesterday and this occurred after getting home and going to sleep. No fever chills. No nausea no vomiting. No cough or congestion. Allergies: Coded Allergies: No Known Allergies (Unverified , 10/30/13) Patient History Past Medical History: see triage record, old chart reviewed, HTN Past Surgical History: none Pertinent Family History: none Social History: Denies: smoking Last Menstrual Period: 1 YEAR AGO Now: No Immunizations: other Reviewed Nursing Documentation: PMH: Agreed; PSxH: Agreed Nursing Documentation-PMH Past Medical History: No History, Except For Hx Hypertension: Yes Hx Cancer: No Hx Gastrointestinal Problems: Yes - Anemia, CHOLECYSTECTOMY Hx Neurological Problems: No Review of Systems Eye: Reports: nose congestion; Denies: eye pain, blurred vision ENT: Denies: ear pain, nose congestion, throat swelling Respiratory: Denies: cough, shortness of breath Cardiovascular: Denies: chest pain, palpitations Gastrointestinal: Denies: abdominal pain, diarrhea, nausea, vomiting Musculoskeletal: Denies: back pain, joint pain Skin: Denies: rash Neurological: Denies: headache, numbness Endocrine: Denies: increased thirst, increased urine Hematologic/Lymphatic: Denies: easy bruising All Other Systems: negative except mentioned in HPI Physical Exam Vital Signs Date Time Temp Pulse Resp B/P (MAP) Pulse Ox O2 Delivery O2 Flow Rate FiO2 05/06/19 00:00 98.6 80 16 122/73 (89) 99 Room Air Vitals normal Sp02 EP Interpretation: reviewed, normal General Appearance: well appearing, no apparent distress, alert Head: normocephalic, atraumatic Eyes: bilateral eye PERRL, bilateral eye EOMI ENT: hearing grossly normal, normal pharynx, other - Turbinate with edema Neck: full range of motion, supple, no meningismus Respiratory: chest non-tender, lungs clear, normal breath sounds Cardiovascular #1: regular rate, rhythm, no murmur Gastrointestinal: normal bowel sounds, non tender, no mass, no organomegaly, no bruit, non-distended Musculoskeletal: back normal, gait/station normal, normal range of motion Psychiatric: mood/affect normal Skin: warm/dry Medical Decision Making Diagnostic Impression: Primary Impression: Upper respiratory infection Qualified Codes: J06.9 - Acute upper respiratory infection, unspecified ER Course This patient presents with a viral illness. This could be an allergic type of reaction. Will hold off on Sudafed because of her high blood pressure. No evidence of bacterial infection. Will discharge home. Last Vital Signs Date Time Temp Pulse Resp B/P (MAP) Pulse Ox O2 Delivery O2 Flow Rate FiO2 05/06/19 00:09 80 16 Room Air 05/06/19 00:09 98.6 122/73 99 Status: unchanged Disposition: HOME, SELF-CARE Condition: Stable Scripts Diphenhydramine Hcl* (BENADRYL*) 25 Mg Capsule 50 MG ORAL Q6H PRN for Itching, #30 CAP Prov: Spenser Hazel MD 05/06/19 Fluticasone Propionate (Flonase Allergy Relief) 9.9 Ml [place].susp 9.9 ML NS BID, #10 ML Prov: Spenser Hazel MD 05/06/19 Patient Instructions: Upper Respiratory Infection, Adult Additional Instructions: May use nasal rinse. Follow-up with your DrJennifer in 7 days. Return if worse. Spenser Hazel MD May 06, 2019 00:16
== END 2019-05-06 00:15 | disposition home or self-care (01) ==
LOC: EMR 05-06 00:15
DX: J06.9 Acute upper respiratory infection, unspecified (principal); I10 Essential (primary) hypertension; Z90.49 Acquired absence of other specified parts of digestive tract
CPT/HCPCS: 99282

== ENCOUNTER 2019-07-15 19:53 | Emergency (ER) | payer MEDICARE, OTHER ==
[~2019-07-15] VITALS: Ht 162.6 cm; Wt 104.3 kg
[~2019-07-15 19:53] MED LIST changes: +BENADRYL25 MG ORAL; +FLONASE ALLERG9.9 ML NS
[2019-07-15 20:08] VITALS: BP 122/77
--- NOTE | 2019-07-15 20:08 | NUR ---
ED Nurse Note: pt walked in to ED C/P right arm pain 10/10. denies any injuiry or trauma. pain starrted about 2 days ago. VSS. pt is alert x4
--- NOTE | 2019-07-15 20:20 | Emergency Room Report ---
History of Present Illness General Chief Complaint: Pain Source: Patient Present Illness HPI 53-year-old female presents to the emergency department complaining of 10 out of 10 severity localized right upper arm pain at the distal biceps x2 days. Patient denies trauma or fall she denies erythema, open wounds or bleeding. Patient denies paresthesias or weakness. Patient states that her pain is exacerbated upon attempts to raise her right arm. She denies previous injury to this extremity. She denies taking estrogen or tobacco use. Her only significant past medical history is high blood pressure. No other aggravating or relieving factors at this time. Allergies: Coded Allergies: No Known Allergies (Unverified , 10/30/13) Patient History Past Medical History: see triage record, HTN Past Surgical History: none Pertinent Family History: none Last Menstrual Period: POSTMENPAUSAL Now: No Reviewed Nursing Documentation: PMH: Agreed; PSxH: Agreed Nursing Documentation-PMH Past Medical History: No History, Except For Hx Hypertension: Yes Hx Cancer: No Hx Gastrointestinal Problems: Yes - Anemia, CHOLECYSTECTOMY Hx Neurological Problems: No Review of Systems All Other Systems: negative except mentioned in HPI Physical Exam Vital Signs Date Time Temp Pulse Resp B/P (MAP) Pulse Ox O2 Delivery O2 Flow Rate FiO2 07/15/19 19:59 98.1 78 16 120/77 (91) 99 Room Air Sp02 EP Interpretation: reviewed, normal General Appearance: no apparent distress, alert, GCS 15, non-toxic Head: normocephalic, atraumatic Eyes: bilateral eye normal inspection, bilateral eye PERRL ENT: hearing grossly normal, normal voice Neck: full range of motion Respiratory: chest non-tender, lungs clear, normal breath sounds, speaking full sentences Cardiovascular #1: regular rate, rhythm, no edema, normal capillary refill Cardiovascular #2: 2+ radial (R), 2+ radial (L) Musculoskeletal: back normal, gait/station normal, normal range of motion, swelling - Medial aspect of the distal right bicep., tender - Tenderness to palpation to the medial aspect of the distal right bicep. No pain exacerbation upon flexion with resistance. Pain with passive raising of the right arm above the 90 degree angle. No bony tenderness and pain no obvious deformities. Neurologic: alert, oriented x3, responsive, motor strength/tone normal, sensory intact, normal gait, speech normal, grossly normal Psychiatric: judgement/insight normal Lymphatic: no adenopathy Medical Decision Making PA Attestation Dr. Jimenez Is my supervising Physician whom patient management has been discussed with. Diagnostic Impression: Primary Impression: Biceps tendonitis on right ER Course Pt. presents to the ED c/o lower extremity pain x2 days, unilateral swelling, erythema, increase in temperature. Pt recently s/p slip and fall and has been mainly bed ridden. Ddx considered but are not limited to bicep tendinitis, bicep tendon rupture, overuse syndrome, DVT musculoskeletal injury just to name a few Vital signs: are WNL, pt. is afebrile H&PE are most consistent with possible upper extremity DVT. Some notable swelling. No pain with strength testing however pain with raising arm passively above the 90 degree angle. ORDERS: --RUE duplex U/s to R/O dvt. -X-ray Right Humerus 3 Views: -Point of care ultrasound performed by attending physician was negative for acute bicep tendon rupture. ED INTERVENTIONS: --Motrin PO DISCHARGE: At this time pt. is stable for d/c to home. Will provide printed patient care instructions, and any necessary prescriptions. Care plan and follow up instructions have been discussed with the patient prior to discharge. Other X-Ray Diagnostic Results Other X-Ray Diagnostic Results : X-Ray ordered: Right Humerus # of Views/Limited Vs Complete: 3 View Indication: Pain EP Interpretation: Yes PA Xray: Interpretation reviewed, by supervising MD, and agrees with findings. Interpretation: no dislocation, no soft tissue swelling, no fractures Impression: No acute disease Electronically Signed by: Bri Stock PA-C CT/MRI/US Diagnostic Results CT/MRI/US Diagnostic Results : Imaging Test Ordered: Venous duplex ultrasound of the right upper extremity Impression Negative for DVT Last Vital Signs Date Time Temp Pulse Resp B/P (MAP) Pulse Ox O2 Delivery O2 Flow Rate FiO2 07/15/19 19:59 98.1 78 16 120/77 (91) 99 Room Air Status: improved Disposition: HOME, SELF-CARE Condition: Stable Scripts Naproxen* (NAPROXEN*) 500 Mg Tablet. 500 MG ORAL TWICE A DAY for 7 Days, #14 TAB Prov: Bri Stock 07/15/19 Patient Instructions: Biceps Tendon Tendinitis (Distal) With Rehab-SportsMed Additional Instructions: Take medications as directed. Follow up with a Primary Care Provider in 3-5 days, even if your symptoms have resolved. --Please review list of primary care clinics, if you do not already have a primary care provider Return sooner to ED if new symptoms occur, or current symptoms become worse. - Please note that this Emergency Department Report was dictated using [employer] technology software, occasionally this can lead to erroneous entry secondary to interpretation by the dictation equipment. Bri Stock Jul 15, 2019 20:20
--- NOTE | 2019-07-15 21:56 | NUR ---
ED Nurse Note: U/S being performed at bedside at this time.
[2019-07-15] MEDS ORDERED: NAPROXEN500 M1 ORAL (22:42)
[2019-07-15 22:52] VITALS: BP 122/74
--- NOTE | 2019-07-16 11:41 | Diagnostic Imaging Report ---
Indications: Pain and swelling Technique: Two views of the right humerus Comparison: None Findings: Small ossific density projected adjacent to the greater tuberosity may reflect a focus of calcific tendinosis. No acute fractures. No dislocations. No radiopaque foreign body Impression: No acute process
--- NOTE | 2019-07-17 11:12 | Diagnostic Imaging Report ---
Indication: Right upper extremity pain Technique: Grayscale and duplex images of the right upper extremity veins Comparison: none Findings: On the right, grayscale and duplex images demonstrate no evidence of intraluminal thrombus. Normal phasic Doppler waveforms, demonstrating no evidence of valvular insufficiency. Normal compressibility. Impression: Negative for right upper extremity venous thrombosis
== END 2019-07-15 22:52 | disposition home or self-care (01) ==
LOC: EMR 21:30
DX: M75.21 Bicipital tendinitis, right shoulder (principal); I10 Essential (primary) hypertension; Z90.49 Acquired absence of other specified parts of digestive tract
CPT/HCPCS: 93971; 99284

== ENCOUNTER 2019-09-12 19:40 | Emergency (ER) | payer MEDICARE, OTHER ==
[~2019-09-12] VITALS: Ht 162.6 cm; Wt 106.6 kg
[~2019-09-12 19:40] MED LIST changes: +NAPROXEN500 M1 ORAL
[2019-09-12 20:05] VITALS: BP 118/59
--- NOTE | 2019-09-12 20:05 | NUR ---
ED Nurse Note: Patient walked in to ER due to left side pain x2 days. Denies any recent injuries/ fall. Pt has history of HTN, anemia. Alert nad oriented, verbally responisve. No SOB. Afebrile. VSS.
[2019-09-12] MEDS ORDERED: Ketorolac 30mg Inj IV ONE (20:15)
--- NOTE | 2019-09-12 20:17 | Emergency Room Report ---
History of Present Illness General Chief Complaint: Pain Source: Patient, Medical Record Present Illness HPI Disclaimer: Please note that this report is being documented using DRAGON technology. This can lead to erroneous entry secondary to incorrect interpretation by the dictating instrument. HPI: 53-year-old female history of hypertension, hyperlipidemia, diabetes presents for evaluation of left leg pain. Symptoms are present for 2 days. Denies injury. Notes a tightness and cramping over the posterior aspect of the left thigh. The pain radiates from the left knee up into the left hip. Denies any pain in the back. Notes limitation of range of motion secondary to pain. She believes she has slight swelling of the thigh. No history of DVT, no recent travel, no history of cancer, no recent immobilization/surgery, does not take exogenous hormones. Has been using crutches at home for stability but normally gets around with a cane. Denies any change in sensation or strength. PMH: Diabetes, hypertension, hyperlipidemia PSH: Cholecystectomy, section Allergies: Denies Social Hx: [] Allergies: Coded Allergies: No Known Allergies (Unverified , 10/30/13) Patient History Now: No Nursing Documentation-PMH Past Medical History: No History, Except For Hx Hypertension: Yes Hx Cancer: No Hx Gastrointestinal Problems: Yes - Anemia, CHOLECYSTECTOMY Hx Neurological Problems: No Review of Systems All Other Systems: negative except mentioned in HPI Physical Exam Vital Signs Date Time Temp Pulse Resp B/P (MAP) Pulse Ox O2 Delivery O2 Flow Rate FiO2 09/12/19 20:02 99.3 80 18 118/59 (78) 100 Room Air General: Awake and alert, no acute distress HEENT: NC/AT. EOMI. Resp: Normal work of breathing Skin: Intact. No abrasions, laceration or rash over the exposed skin MSK: Normal tone and bulk. Moving all extremities. No obvious deformity. Patient is tenderness over the posterior and lateral aspect of the left thigh from the left hip down to the knee. No obvious deformity. No appreciable edema or effusion. There is also some tenderness in the left cast without edema. There is tenderness over the posterior distal deep vein distribution. Compartments are soft. Homans sign is negative. Neuro: Awake and alert. Mentating appropriately. Sensation is intact over the dermatomes of the lower extremities. Medical Decision Making Diagnostic Impression: Primary Impression: Muscle strain ER Course 53-year-old female presents for evaluation of atraumatic left lower extremity pain and subjective swelling. Distal pulses are intact. I cannot appreciate any objective swelling or asymmetry though she does have tenderness of the deep vein distribution. No risk factors for DVT however will obtain a Doppler to rule out. Also possible muscle spasm from letter light abnormalities given her diabetes. Will obtain screening labs and give Toradol for pain. If unremarkable patient may be discharged home is most likely a muscular strain that can be followed up as an outpatient. Laboratory Tests Test 09/12/19 20:23 White Blood Count 12.1 K/UL (4.8-10.8) H Red Blood Count 5.54 M/UL (4.20-5.40) H Hemoglobin 12.5 G/DL (12.0-16.0) Hematocrit 40.8 % (37.0-47.0) Mean Corpuscular Volume 74 FL (80-99) L Mean Corpuscular Hemoglobin 22.6 PG (27.0-31.0) L Mean Corpuscular Hemoglobin Concent 30.7 G/DL (32.0-36.0) L Red Cell Distribution Width 12.8 % (11.6-14.8) Platelet Count 314 K/UL (150-450) Mean Platelet Volume 6.0 FL (6.5-10.1) L Neutrophils (%) (Auto) 76.4 % (45.0-75.0) H Lymphocytes (%) (Auto) 17.2 % (20.0-45.0) L Monocytes (%) (Auto) 5.5 % (1.0-10.0) Eosinophils (%) (Auto) 0.4 % (0.0-3.0) Basophils (%) (Auto) 0.5 % (0.0-2.0) Prothrombin Time 10.2 SEC (9.30-11.50) Prothrombin Time INR 1.0 (0.9-1.1) Sodium Level 142 MMOL/L (136-145) Potassium Level 3.7 MMOL/L (3.5-5.1) Chloride Level 102 MMOL/L (98-107) Carbon Dioxide Level 32 MMOL/L (21-32) Anion Gap 8 mmol/L (5-15) Blood Urea Nitrogen 12 mg/dL (7-18) Creatinine 1.1 MG/DL (0.55-1.30) Estimate Glomerular Filtration Rate > 60 mL/min (>60) Glucose Level 109 MG/DL (74-106) H Calcium Level 9.7 MG/DL (8.5-10.1) Reevaluation Time: 21:14 Last Vital Signs Date Time Temp Pulse Resp B/P (MAP) Pulse Ox O2 Delivery O2 Flow Rate FiO2 09/12/19 20:02 99.3 80 18 118/59 (78) 100 Room Air Reevaluation Impression No DVT observed on Doppler studies, labs within normal limits. Likely muscular skeletal injury. The patient be discharged home with NSAIDs and follow-up with PMD later this week. Discussed with family at bedside. They understand agree with treatment plan will be discharged. Disposition: HOME, SELF-CARE Condition: Stable Scripts Acetaminophen* (ACETAMINOPHEN 325MG TABLET*) 325 Mg Tablet 650 MG ORAL Q6H PRN for For Pain for 5 Days, #30 TAB Prov: Pablito Whitney MD 09/12/19 Ibuprofen* (MOTRIN*) 600 Mg Tablet 600 MG ORAL Q8H PRN for For Pain, #30 TAB 0 Refills Prov: Pablito Whitney MD 09/12/19 Pablito Whitney MD Sep 12, 2019 20:17
--- NOTE | 2019-09-12 20:20 | NUR ---
ED Nurse Note: US at bedside.
[2019-09-12 20:38] LABS: BASOPHILS % (AUTO) 0.5 % (0.0-2.0); EOSINOPHILS % (AUTO) 0.4 % (0.0-3.0); HEMATOCRIT 40.8 % (37.0-47.0); HEMOGLOBIN 12.5 G/DL (12.0-16.0); LYMPHOCYTES % (AUTO) 17.2 % (20.0-45.0); MEAN CORPUSCULAR VOLUME 74 FL (80-99); MONOCYTES % (AUTO) 5.5 % (1.0-10.0); NEUTROPHILS % (AUTO) 76.4 % (45.0-75.0); PLATELET COUNT 314 K/UL (150-450); RED BLOOD COUNT 5.54 M/UL (4.20-5.40); RED CELL DISTRIBUTION WIDTH 12.8 % (11.6-14.8); WHITE BLOOD COUNT 12.1 K/UL (4.8-10.8)
[2019-09-12 20:53] LABS: ANION GAP 8 mmol/L (5-15); BLOOD UREA NITROGEN 12 mg/dL (7-18); CALCIUM 9.7 MG/DL (8.5-10.1); CARBON DIOXIDE 32 MMOL/L (21-32); CHLORIDE 102 MMOL/L (98-107); CREATININE 1.1 MG/DL (0.55-1.30); POTASSIUM 3.7 MMOL/L (3.5-5.1); SODIUM 142 MMOL/L (136-145)
[2019-09-12] MEDS ORDERED: ACETAMINOPHEN325 M1 ORAL (21:08)
[2019-09-12] MEDS ORDERED: IBUPROFEN600 MG ORAL (21:08)
[2019-09-12 21:24] VITALS: BP 118/59
--- NOTE | 2019-09-12 21:24 | NUR ---
ED Nurse Note: Pt cleared by ERMD for discharge. DC instructions/prescription was given and explained to pt and verbalized understanding of teachings. All medical deviecs such as ID band and IV line removed. Pt is AAO x4, ambulatory and left with all personal belongings. Accompanied by family members.
--- NOTE | 2019-09-13 14:16 | Diagnostic Imaging Report ---
Indication: Left lower extremity pain Technique: Zapata scale and duplex images of the left lower extremity veins Comparison: none Findings: On the left, grayscale and duplex images demonstrate no evidence of intraluminal thrombus. Normal phasic Doppler waveforms, demonstrating normal augmentation response. Normal compressibility Impression: Negative This agrees with the preliminary interpretation provided overnight by Dr. White
== END 2019-09-12 21:30 | disposition home or self-care (01) ==
LOC: EMR 20:20
DX: S76.912A Strain of unspecified muscles, fascia and tendons at thigh level, left thigh, initial encounter (principal); E11.9 Type 2 diabetes mellitus without complications; I10 Essential (primary) hypertension; E78.5 Hyperlipidemia, unspecified; Z90.49 Acquired absence of other specified parts of digestive tract; X58.XXXA Exposure to other specified factors, initial encounter; Y92.9 Unspecified place or not applicable
CPT/HCPCS: 36415; 80048; 85025; 85610; 93971; 96374; 99284; J1885

== ENCOUNTER 2019-12-11 17:56 | Emergency (ER) | payer MEDICARE, OTHER ==
[~2019-12-11] VITALS: Ht 162.6 cm; Wt 104.3 kg
[~2019-12-11 17:56] MED LIST changes: +ACETAMINOPHEN325 M1 ORAL
[2019-12-11 18:10] VITALS: BP 125/69
--- NOTE | 2019-12-11 18:10 | NUR ---
ED Nurse Note: Pt ambulated to ER d/t diarrhea, body weakness and LT arm pain since monday. Placed on bed and gown, will continue to monitor.
--- NOTE | 2019-12-11 19:00 | NUR ---
ED Nurse Note: X-ray on bedside.
--- NOTE | 2019-12-11 19:05 | NUR ---
ED Nurse Note: X-ray done
--- NOTE | 2019-12-11 19:13 | NUR ---
HAND-OFF: Report given to Vandana ANGLIN.
--- NOTE | 2019-12-11 19:16 | NUR ---
ED Nurse Note: Recieved report from DERREK Ramos.
--- NOTE | 2019-12-11 19:41 | NUR ---
ED Nurse Note: Blood redrawn and flu swab sent to lab.
[2019-12-11 20:01] LABS: BASOPHILS % (AUTO) 0.7 % (0.0-2.0); EOSINOPHILS % (AUTO) 1.1 % (0.0-3.0); HEMATOCRIT 39.4 % (37.0-47.0); HEMOGLOBIN 12.1 G/DL (12.0-16.0); LYMPHOCYTES % (AUTO) 22.6 % (20.0-45.0); MEAN CORPUSCULAR VOLUME 73 FL (80-99); MONOCYTES % (AUTO) 5.9 % (1.0-10.0); NEUTROPHILS % (AUTO) 69.7 % (45.0-75.0); PLATELET COUNT 309 K/UL (150-450); RED BLOOD COUNT 5.37 M/UL (4.20-5.40); RED CELL DISTRIBUTION WIDTH 14.3 % (11.6-14.8); WHITE BLOOD COUNT 9.3 K/UL (4.8-10.8)
[2019-12-11 20:14] LABS: ANION GAP 10 mmol/L (5-15); BLOOD UREA NITROGEN 11 mg/dL (7-18); CALCIUM 9.4 MG/DL (8.5-10.1); CARBON DIOXIDE 30 MMOL/L (21-32); CHLORIDE 104 MMOL/L (98-107); CREATININE 1.1 MG/DL (0.55-1.30); POTASSIUM 3.5 MMOL/L (3.5-5.1); SODIUM 143 MMOL/L (136-145)
[2019-12-11 20:18] LABS: ALANINE AMINOTRANSFERASE 17 U/L (12-78); ALBUMIN 3.7 G/DL (3.4-5.0); ALBUMIN/GLOBULIN RATIO 0.9 (1.0-2.7); ALKALINE PHOSPHATASE 75 U/L (46-116); ASPARTATE AMINO TRANSFERASE 15 U/L (15-37); BILIRUBIN,TOTAL 0.2 MG/DL (0.2-1.0)
--- NOTE | 2019-12-11 20:29 | Emergency Room Report ---
History of Present Illness General Chief Complaint: Diarrhea Source: Patient Present Illness HPI 53-year-old female with history of hypertension currently controlled with hydrochlorothiazide here complaining of 3 days few bouts of nonbloody diarrhea, epigastric abdominal pain, generalized body ache. Denies chest pain, cough and congestion, fever chills, headache and dizziness. Denies recent travel. Denies urinary frequency and urgency. Also complains of worsening or pruritus pain left elbow times few days. Denies any fall or injury. Has been taking Motrin with minimal relief. Sitting comfortably with stable vital signs. Allergies: Coded Allergies: No Known Allergies (Unverified , 10/30/13) Patient History Past Medical History: see triage record Past Surgical History: unable to obtain Pertinent Family History: none Now: No Immunizations: UTD Reviewed Nursing Documentation: PMH: Agreed; PSxH: Agreed Nursing Documentation-PMH Past Medical History: No History, Except For Hx Hypertension: Yes Hx Cancer: No Hx Gastrointestinal Problems: Yes - Anemia, CHOLECYSTECTOMY Hx Neurological Problems: No Review of Systems All Other Systems: negative except mentioned in HPI Physical Exam Vital Signs Date Time Temp Pulse Resp B/P (MAP) Pulse Ox O2 Delivery O2 Flow Rate FiO2 12/11/19 18:01 97.9 86 15 125/69 (87) 96 Room Air Sp02 EP Interpretation: reviewed, normal General Appearance: no apparent distress, alert, GCS 15, non-toxic Head: normocephalic, atraumatic Eyes: bilateral eye normal inspection, bilateral eye PERRL ENT: hearing grossly normal, normal pharynx, no angioedema, normal voice Neck: full range of motion, supple, thyroid normal, no meningismus, no bony tend, supple/symm/no masses Respiratory: chest non-tender, lungs clear, normal breath sounds, no rhonchi, no respiratory distress, no retraction, speaking full sentences Cardiovascular #1: regular rate, rhythm, no edema, no murmur, normal capillary refill Gastrointestinal: non tender, soft, no mass, no organomegaly, no peritonitis, no bruit, no guarding, no hernia, no pulsatile mass, no rebound Rectal: deferred Genitourinary: no CVA tenderness Musculoskeletal: back normal, no calf tenderness Neurologic: alert, motor strength/tone normal, oriented x3, sensory intact, responsive, speech normal Psychiatric: judgement/insight normal, memory normal, mood/affect normal, no suicidal/homicidal ideation Skin: no rash Lymphatic: no adenopathy Medical Decision Making PA Attestation All my diagnosis and treatment plans were reviewed ad discussed with my supervising physician Dr. Jama Diagnostic Impression: Primary Impression: Pneumonitis Additional Impression: Influenza ER Course 53-year-old female with history of hypertension currently controlled with hydrochlorothiazide here complaining of 3 days few bouts of nonbloody diarrhea, epigastric abdominal pain, generalized body ache. Denies chest pain, cough and congestion, fever chills, headache and dizziness. Denies recent travel. Denies urinary frequency and urgency. Also complains of worsening or pruritus pain left elbow times few days. Denies any fall or injury. Has been taking Motrin with minimal relief. Sitting comfortably with stable vital signs. Ddx considered but are not limited to: bronchitis, PNA, URI viral, bacterial bronchitis, pneumonitis, influenza Vital signs: are WNL, pt. is afebrile H&PE are most consistent with: Pneumonitis, influenza ORDERS: CBC, CMP, UA, urine test, lipase, chest x-ray, troponin, azithromycin, dicyclomine, guaifenesin ED INTERVENTIONS: NS bolus, Pepcid, Zofran, Toradol DISCHARGE: At this time pt. is stable for d/c to home. Will provide printed patient care instructions, and any necessary prescriptions. Care plan and follow up instructions have been discussed with the patient prior to discharge. Patient to follow primary care provider, take medication as directed, increase oral hydration, patient taking Motrin for arthritis pain, if worsening symptoms return to emergency room EKG Diagnostic Results Rate: normal Rhythm: NSR ST Segments: no acute changes Other Impression No acute ST changes Chest X-Ray Diagnostic Results Chest X-Ray Diagnostic Results : Chest X-Ray Ordered: Yes # of Views/Limited/Complete: 1 View Indication: Other EP Interpretation: Yes PA Xray: Interpretation reviewed, by supervising MD, and agrees with findings. Interpretation: no consolidation, no effusion, no pneumothorax Impression: No acute disease Electronically Signed by: Maribel Stephens PA-C Other X-Ray Diagnostic Results Other X-Ray Diagnostic Results : X-Ray ordered: Left elbow # of Views/Limited Vs Complete: 3 View Indication: Pain EP Interpretation: Yes PA Xray: Interpretation reviewed, by supervising MD, and agrees with findings. Interpretation: no dislocation, no soft tissue swelling, no fractures Impression: No acute disease Electronically Signed by: Maribel Stephens PA-C Last Vital Signs Date Time Temp Pulse Resp B/P (MAP) Pulse Ox O2 Delivery O2 Flow Rate FiO2 12/11/19 18:10 97.9 72 15 125/69 96 Room Air Disposition: HOME, SELF-CARE Condition: Stable Scripts Dicyclomine Hcl* (DICYCLOMINE HCL*) 10 Mg Capsule 10 MG ORAL TID, #10 CAP Prov: Maribel Child 12/11/19 Azithromycin* (ZITHROMAX*) 250 Mg Tablet 250 MG ORAL DAILY, #6 TAB 0 Refills Take two tables once daily for 1 day, then one tablet once daily for 4 days. Prov: Maribel Child 12/11/19 Oseltamivir Phosphate (Tamiflu) 75 Mg Capsule 75 MG ORAL TWICE A DAY for 5 Days, #10 CAP Prov: Maribel Child 12/11/19 Patient Instructions: Diarrhea, Adult, Pneumonitis Additional Instructions: Take medication as directed, follow-up with your primary care provider, if worsening symptoms return to the emergency room Maribel Child Dec 11, 2019 20:29
[2019-12-11] MEDS ORDERED: DICYCLOMINE HCL10 MG ORAL (20:30)
[2019-12-11] MEDS ORDERED: ZITHROMAX250 MG ORAL (20:30)
[2019-12-11] MEDS ORDERED: TAMIFLU75 MG ORAL (20:30)
[2019-12-11 20:35] LABS: APPEARANCE,URINE CLEAR; BILIRUBIN, URINE NEGATIVE (NEGATIVE); COLOR,URINE PALE YELLOW; GLUCOSE, URINE (UA) NEGATIVE (NEGATIVE); KETONES,URINE NEGATIVE (NEGATIVE); LEUKOCYTE ESTERASE ,URINE 1+ (NEGATIVE); NITRITE,URINE NEGATIVE (NEGATIVE); PH,URINE 7 (4.5-8.0); PROTEIN,URINE NEGATIVE (NEGATIVE); UROBILINOGEN,URINE NORMAL MG/DL (0.0-1.0)
[2019-12-11 21:11] VITALS: BP 133/82
--- NOTE | 2019-12-11 21:11 | NUR ---
ER DISCHARGE NOTE: Patient is cleared to be discharged per ERMD, pt is aox4, on room air, with stable vital signs. pt was given dc and prescription instructions, pt was able to verbalize understanding, pt id band and iv site removed intact without complications. pt is able to ambulate with steady gait. pt took all belongings. pt stable upon discharge.
--- NOTE | 2019-12-12 09:54 | Diagnostic Imaging Report ---
Indications:Elbow pain Technique: Three or 4 views of the left elbow Comparison: None Findings:No acute fractures. No dislocations. No effusion. The joint spaces are preserved. Impression: Negative
--- NOTE | 2019-12-12 09:55 | Diagnostic Imaging Report ---
Indication: Chest pain Technique: One view of the chest Comparison: 05/30/2014 Findings: Lungs and pleural spaces are clear. Heart size is normal. No significant change Impression: No acute process
== END 2019-12-11 21:11 | disposition home or self-care (01) ==
LOC: EMR 21:01
DX: J18.9 Pneumonia, unspecified organism (principal); J11.1 Influenza due to unidentified influenza virus with other respiratory manifestations; Z90.49 Acquired absence of other specified parts of digestive tract; I10 Essential (primary) hypertension
CPT/HCPCS: 36415; 71045; 73080; 80053; 81003; 81025; 83690; 84484; 85025; 86710; 96361; 96374; 96375; 99284; J2405; J7030; S0028

== ENCOUNTER 2019-12-30 19:37 | Emergency (ER) | payer MEDICARE ==
[~2019-12-30] VITALS: Ht 162.6 cm; Wt 99.8 kg
[~2019-12-30 19:37] MED LIST changes: +DICYCLOMINE HCL10 MG ORAL; +TAMIFLU75 MG ORAL
--- NOTE | 2019-12-30 20:23 | NUR ---
ED Nurse Note: pt walked in from home c/o L elbow pain and decreased ROM x 3 weeks, pt also reports L knee px. no injury or trauma to affected areas. ao4. nad. vss. sitting in bed dressed in gown.
[2019-12-30 20:27] VITALS: BP 121/77
--- NOTE | 2019-12-30 20:49 | Emergency Room Report ---
History of Present Illness General Chief Complaint: Pain Source: Patient Present Illness HPI Disclaimer: Please note that this report is being documented using DRAGON technology. This can lead to erroneous entry secondary to incorrect interpretation by the dictating instrument. HPI: 54-year-old female presents for evaluation of left arm pain. She notes pain without swelling in the left elbow and the proximal portion of the left forearm. Cannot recall an injury. Cannot recall bug bite, bending, twisting, trauma of any kind. No history of gout, pseudogout or other in [place] laboratory crystal myopathies. Has a history of osteoarthritis in her knees but no problems with her elbows. She is right-hand dominant. She has not taken anything for pain or swelling. She states she was urged to seek medical attention today by her manufacturing quality inspector after denominational. She does not note any progressive worsening pain or stiffness. Still able to move the fingers, wrist, shoulder without difficulty. No pain or swelling in those regions either. Denies numbness or tingling or weakness. PMH: Hypertension, obesity Allergies: None Social Hx: Denies Allergies: Coded Allergies: No Known Allergies (Unverified , 10/30/13) Patient History Last Menstrual Period: n/a Nursing Documentation-PMH Hx Hypertension: Yes Hx Cancer: No Hx Gastrointestinal Problems: Yes - Anemia, CHOLECYSTECTOMY Hx Neurological Problems: No Review of Systems All Other Systems: negative except mentioned in HPI Physical Exam Vital Signs Date Time Temp Pulse Resp B/P (MAP) Pulse Ox O2 Delivery O2 Flow Rate FiO2 12/30/19 19:50 98.4 76 18 121/77 (92) 94 Room Air General: Awake and alert, no acute distress HEENT: NC/AT. EOMI. Resp: Normal work of breathing Skin: Intact. No abrasions, laceration or rash over the exposed skin MSK: Normal tone and bulk. Moving all extremities. No obvious deformity. Tenderness palpation over the lateral condyle of the elbow without deformity. No erythema, no edema, no warmth. No overlying skin changes, ulcerations or evidence of bite/scratches. Full range of motion and strength in the hand, wrist, shoulder. Neuro: Awake and alert. Mentating appropriately Medical Decision Making Diagnostic Impression: Primary Impression: Left elbow pain ER Course 54-year-old female presents for evaluation of 3 weeks atraumatic left elbow pain. Differential includes but is not limited to occult injury, arthritis, ligamentous injury, muscular injury. Far-Less concern for gout, pseudogout, infectious at this time. Do not believe she requires emergent labs or imaging at this time. She is otherwise well-appearing. Rest of the upper extremity is unremarkable. X-rays were obtained which do not show acute fracture or dislocation. She will be discharged will put in a sling and treat with NSAIDs. Refer to orthopedic surgery and her PMD. Discussed reasons to return to the emergency department. She understands and agrees with treatment plan. Other X-Ray Diagnostic Results Other X-Ray Diagnostic Results : X-Ray ordered: Left elbow # of Views/Limited Vs Complete: 2 View Indication: Pain EP Interpretation: Yes Interpretation: no dislocation, no soft tissue swelling, no fractures Impression: No acute disease Electronically Signed by: Electronically signed by Dr. Pablito Whitney Last Vital Signs Date Time Temp Pulse Resp B/P (MAP) Pulse Ox O2 Delivery O2 Flow Rate FiO2 12/30/19 20:27 98.4 89 18 121/77 94 Room Air Disposition: HOME, SELF-CARE Condition: Stable Scripts Ibuprofen* (MOTRIN*) 600 Mg Tablet 600 MG ORAL Q8H PRN for For Pain, #30 TAB 0 Refills Prov: Pablito Whitney MD 12/30/19 Pablito Whitney MD Dec 30, 2019 20:49
[2019-12-30] MEDS ORDERED: IBUPROFEN600 MG ORAL (20:50)
--- NOTE | 2019-12-30 20:52 | NUR ---
ED Nurse Note: imaging at bedside for left arm xray
--- NOTE | 2019-12-30 21:27 | NUR ---
ED Nurse Note: provided patient with left arm sling
--- NOTE | 2019-12-30 21:30 | NUR ---
ER DISCHARGE NOTE: Patient is cleared to be discharged per ERMD, pt is aox4, on room air, with stable vital signs. accompanied by family member. pt was given dc and prescription instructions, pt was able to verbalize understanding, pt id band and iv site removed without complications. pt is able to ambulate with steady gait. pt took all belongings.
[2019-12-30 21:45] VITALS: BP 121/77
--- NOTE | 2019-12-31 09:15 | Diagnostic Imaging Report ---
Indications:Left elbow pain Technique: Three or 4 views of the left elbow Comparison: None Findings: Positioning is suboptimal on the lateral view, precluding confident exclusion of a joint effusion. No definite acute fractures. No dislocations. Impression: Somewhat limited exam. No definite acute bony trauma
== END 2019-12-30 21:45 | disposition home or self-care (01) ==
LOC: EMR 21:30
DX: M25.522 Pain in left elbow (principal); M17.0 Bilateral primary osteoarthritis of knee; I10 Essential (primary) hypertension; Z90.49 Acquired absence of other specified parts of digestive tract
CPT/HCPCS: 99283